=== PATIENT | male | born 1980 | race Caucasian/White ===

== ENCOUNTER 2021-01-18 07:24 | Emergency (ER) | payer OTHER ==
[2021-01-18 07:32] VITALS: BP 119/75; PULSE 78
[2021-01-18] MEDS ORDERED: Sodium Chloride 0.9% 10 ML Syringe FLUSH PRN (07:55)
[2021-01-18] MEDS: Clindamycin in 0.9 % Sod Chlor 600 MG in Premix Bag 1 BAG IV ONE ×2 (08:08)
[2021-01-18] MEDS: Bupivacaine 0.5% 10 ML SDV INJECT ONE (08:13)
[2021-01-18] MEDS: Lidocaine 2% 5 ML SDV INJECT ONE (08:13)
--- NOTE | 2021-01-18 08:52 | EDM.PDOC ---
ED HPI GENERAL MEDICAL PROBLEM - General Chief Complaint: General Stated Complaint: facial swelling Time Seen by Provider: 01/18/21 07:30 Source of Information: Reports: Patient History Limitations: Reports: No Limitations - History of Present Illness INITIAL COMMENTS - FREE TEXT/NARRATIVE: Patient comes emergency department today from home with complaints of swelling to the left lateral aspect of his face. Patient has had multiple dental infections in the past. Yesterday he noted that he started to have some swelling in the left lower mandible and some pain when he went to bed last night. It woke him up early this morning with quite a bit of swelling and pain to the left side of his face. He has had no recent dental procedures. He did attempt to contact his dentist but they are unable to see him until next week. He has no difficulty breathing swallowing. There is no drooling. No fever no chills. No Covid exposure no Covid symptoms. Treatments [employer]: Reports: NSAIDS Left Face/Facial Pain Score (Numeric/FACES): 2 - Related Data Allergies Allergy/AdvReac Type Severity Reaction Status Date / Time No Known Allergies Allergy Verified 01/18/21 07:32 Home Meds: Home Meds Acetaminophen/HYDROcodone [[place] 325-5 MG] 1 tab PO Q4H PRN #12 tablet 01/18/21 [Rx] Clindamycin HCl 300 mg PO QID #24 capsule 01/18/21 [Rx] Past Medical History - Past Surgical History HEENT Surgical History: Reports: Oral Surgery ED ROS GENERAL - Review of Systems Review Of Systems: Comprehensive ROS is negative, except as noted in HPI. ED EXAM, GENERAL - Physical Exam Exam: See Below Exam Limited By: No Limitations General Appearance: Alert, WD/WN, No Apparent Distress Eye Exam: Bilateral Eye: EOMI, PERRL Ears: Normal External Exam, Normal TMs Nose: Normal Inspection, Normal Mucosa Throat/Mouth: No Airway Compromise, Other (There is no drooling there is no trismus. He has quite a bit of swelling on the external aspect of his left lower mandible. No breaks in the skin.). No: Normal Inspection (Quite a bit of area of dental caries throughout the oral cavity. Most concerning left lower mandible in the second molar there is a large area of induration swelling and fluctuance on the lateral aspect of the mandible. There is no breaks in the skin in the oral cavity.) Head: Atraumatic, Normocephalic Neck: Normal Inspection, Supple, Non-Tender, Lymphadenopathy (L), Other (Trachea is midline no drooling or stridor). No: Lymphadenopathy (R) Respiratory/Chest: No Respiratory Distress, Lungs Clear Cardiovascular: Normal Peripheral Pulses, Regular Rate, Rhythm Extremities: Normal Inspection Neurological: Alert, Oriented, CN II-XII Intact, Normal Cognition, Normal Gait, No Motor/Sensory Deficits Psychiatric: Normal Affect, Normal Mood Skin Exam: Warm, Dry, Intact, Normal Color, No Rash Course - Vital Signs Last Recorded V/S: Last Vital Signs Temp 98.2 F 01/18/21 07:25 Pulse 78 01/18/21 07:25 Resp 16 01/18/21 07:25 BP 119/75 01/18/21 07:25 Pulse Ox 97 01/18/21 07:25 - Orders/Labs/Meds Orders: Active Orders 24 hr Category Date Time Status Peripheral IV Care [RC] . DIRECTED Care 01/18/21 07:55 Active Sodium Chloride 0.9% [Saline Flush] Med 01/18/21 07:55 Active 10 ml FLUSH ASDIRECTED PRN Peripheral IV Insertion Adult [OM.PC] Stat Oth 01/18/21 07:55 Ordered Medication Orders Sodium Chloride (Sodium Chloride 0.9% 10 Ml Syringe) 10 ml FLUSH ASDIRECTED PRN PRN Reason: Keep Vein Open Meds: Medications Generic Name Dose Route Start Last Admin Trade Name Freq PRN Reason Stop Dose Admin Sodium Chloride 10 ml 01/18/21 07:55 Sodium Chloride 0.9% 10 Ml Syringe FLUSH ASDIRECTED PRN Keep Vein Open Discontinued Medications Generic Name Dose Route Start Last Admin Trade Name Freq PRN Reason Stop Dose Admin Bupivacaine HCl 10 ml 01/18/21 07:55 01/18/21 08:13 Bupivacaine 0.5% 10 Ml Sdv INJECT 01/18/21 07:56 10 ml ONETIME ONE Administration Clindamycin/Sodium Chloride 50 mls @ 150 mls/hr 01/18/21 07:55 01/18/21 08:08 600 mg/ Premix IV 01/18/21 08:14 150 mls/hr ONETIME ONE Administration Lidocaine 5 ml 01/18/21 07:55 01/18/21 08:13 Lidocaine 2% 5 Ml Sdv INJECT 01/18/21 07:56 5 ml ONETIME ONE Administration - Re-Assessments/Exams Free Text/Narrative Re-Assessment/Exam: 01/18/21 09:25 This patient clearly has a rather large dental abscess in the left lower mandible. An IV was established. 600 mg of IV clindamycin was given piggyback. After risk and benefits of incision and drainage with the left inferior alveolar block were explained to the patient. Verbal consent was obtained. 2% lidocaine without epinephrine and 0.5% bupivacaine without epinephrine was mixed in a 50-50 fashion. The landmarks were identified in the left lower mandible for an inferior alveolar block. 5 mils of the above fluid was instilled at the site with no blood return with aspiration prior to instillation of the above therapy. I then instilled 3 cc of the above solution in the area of the abscess on the left lower lateral mandible in the area of the second molar. The patient obtain excellent anesthesia. I then took a 11 blade and made a small crucifix incision over the fluctuant region on the left lateral mandible on the anterior aspect of the mouth. I had immediate return of purulent discharge. Small amount of probing to break up loculations with improved return of purulent discharge. He was irrigated with normal saline with an Angiocath. Patient tolerated the procedure well. Minimal amount of bleeding. As this is Thursday and he is able to see a dentist and he has quite a bit of abscess in his jaw we will do outpatient antibiotics to include clindamycin 600 mg IV piggyback every 6 hours. And have him recheck in 24 hours. If it anytime he develops any shortness of breath difficulty breathing drooling or difficulty swallowing he is to recheck immediately. If it 24 hours he has improvement of his dental abscess we will then switch him to clindamycin 300 mg 4 times daily for the next 7 days. A long discussion was held with the patient the importance of probiotics as well as yogurt with live cultures for the prevention of C. difficile infection. Hydrocodone for pain. Contact his dentist and see them as soon as possible. Discharge directions as below are explained to the patient he was comfortable with this plan and his questions are answered. Departure - Departure Time of Disposition: 08:45 Disposition: Home, Self-Care 01 Clinical Impression: Dental abscess - Discharge Information Prescriptions: Clindamycin HCl 300 mg PO QID #24 capsule Acetaminophen/HYDROcodone [[place] 325-5 MG] 1 tab PO Q4H PRN #12 tablet PRN Reason: Pain Instructions: Antibiotic Medicine, Adult, [id number], Dental Abscess, [id number] Referrals: PCP,None [Primary Care Provider] - Forms: ED Department Discharge Additional Instructions: Home rest today. Plenty of fluids over the next few days. Mouth wash 4 times a day until infection as resolved. Tylenol and or Ibuprofen as needed for pain. Return every 6 hrs 2pm. 8pm today for outpatient anti-biotics. At 2am take 300mg or tabs of the clindamycin orally at home. Last dose of antibiotics IV at 8am thursday morning and then can switch to oral clindamycin 300mg by mouth 4 times a day for the next 7 days. Rx sent to [facility] pharmacy. Make sure and get pro-biotics at the pharmacy and try to eat yogurt with live cultures 3 times a day at least until you are off the antibiotics. If pain not controlled with above. [place] 5/325, 1 tablet every 4 hrs with food as needed for pain. Caution sedation. Do not take this medication with Tylenol as it has Tylenol in it as well. Rx sent to [facility] pharmacy. See a Dentist TODD. Return to the ED if new or worsening symptoms. Especially if swelling is worsening difficulty swallowing breathing or uncontrolled drooling. Sepsis Event Note (ED) - Evaluation Sepsis Screening Result: No Definite Risk - Focused Exam Vital Signs: Vital Signs Temp Pulse Resp BP Pulse Ox 01/18/21 07:25 98.2 F 78 16 119/75 97 - My Orders Last 24 Hours: My Active Orders 01/18/21 07:55 Peripheral IV Care [RC] . DIRECTED Sodium Chloride 0.9% [Saline Flush] 10 ml FLUSH ASDIRECTED PRN Peripheral IV Insertion Adult [OM.PC] Stat - Assessment/Plan Last 24 Hours: My Active Orders 01/18/21 07:55 Peripheral IV Care [RC] . DIRECTED Sodium Chloride 0.9% [Saline Flush] 10 ml FLUSH ASDIRECTED PRN Peripheral IV Insertion Adult [OM.PC] Stat
== END 2021-01-18 09:15 | disposition home or self-care (01) ==
LOC: LL.ED 07:24
DX: K04.7 Periapical abscess without sinus (principal); K02.9 Dental caries, unspecified
CPT/HCPCS: 41800; 96365; 99282-25; J3490